=== PATIENT | female | born 1970 | race Caucasian/White ===

== ENCOUNTER 2017-02-24 13:28 | Emergency (ER) | payer MEDICARE, MEDICAID ==
[~2017-02-24] VITALS: Ht 172.7 cm; Wt 58.1 kg
[~2017-02-24 13:28] MED LIST: AMOX500C2 PO; BUDE10.2 IH; BUDE180A IH; CLOM50CA2 PO; GABA400C PO; IPRA21SP NS; LAMO200T2 PO; LUBI24CA7 PO; POLY17PO4 PO; PROZAC PO; QUET400T PO; RIZA10TA27 PO; TOPI100T11 PO; TRAZ150T75 PO; ZOLP10TA2 PO; [UNRECOGNIZED DRUG - CODE] EA NOSTRIL
--- NOTE | 2017-02-24 13:40 | NUR ---
MSE DONE BY DR TATUM AT BEDSIDE.
--- NOTE | 2017-02-24 13:50 | NUR ---
Patient discharged to home in stable conditon. Written and verbal after care instructions given. Patient verbalizes understanding of instructions.
== END 2017-02-24 13:56 | disposition home or self-care (01) ==
LOC: ER 13:30
DX: S05.11XA Contusion of eyeball and orbital tissues, right eye, initial encounter (principal); F31.9 Bipolar disorder, unspecified; X58.XXXA Exposure to other specified factors, initial encounter; Y93.89 Activity, other specified; Y99.8 Other external cause status; Y92.89 Other specified places as the place of occurrence of the external cause
CPT/HCPCS: 99281; A4663

== ENCOUNTER 2019-07-04 15:12 | Emergency (ER) | payer MEDICARE, MEDICAID ==
[~2019-07-04] VITALS: Ht 172.7 cm; Wt 55.8 kg
[~2019-07-04 15:12] MED LIST changes: +LUBI24CA5 PO; -LUBI24CA7 PO; +TOPI100T PO; -TOPI100T11 PO
[2019-07-04] MEDS ORDERED: HYDROCODONE/APAP 5-325MG TABLET ONE (15:45)
[2019-07-04] MEDS ORDERED: HYDROCODONE/APAP 5-325MG TABLET PO ONE (15:45)
--- NOTE | 2019-07-04 16:44 | NUR ---
Patient discharged to home in stable conditon. Written and verbal after care instructions given. Patient verbalizes understanding of instructions.
== END 2019-07-04 16:45 | disposition home or self-care (01) ==
LOC: ER 15:12
DX: S20.212A Contusion of left front wall of thorax, initial encounter (principal); F31.9 Bipolar disorder, unspecified; Z79.2 Long term (current) use of antibiotics; Z79.899 Other long term (current) drug therapy; Z91.09 Other allergy status, other than to drugs and biological substances; W01.0XXA Fall on same level from slipping, tripping and stumbling without subsequent striking against object, initial encounter; Y93.89 Activity, other specified; Y92.89 Other specified places as the place of occurrence of the external cause; Y99.8 Other external cause status
CPT/HCPCS: 71046; A4663

== ENCOUNTER 2022-12-02 11:43 | Emergency (ER) | payer MEDICARE, OTHER ==
[~2022-12-02] VITALS: Ht 172.7 cm; Wt 72.6 kg
[2022-12-02] MEDS ORDERED: IBUPROFEN 400 MG TABLET PO ONE (12:15)
[2022-12-02] MEDS ORDERED: IBUPROFEN 400 MG TABLET ONE (12:18)
[2022-12-02] MEDS ORDERED: MORPHINE SULFATE 4 MG/1 ML DISP.SYRIN ONE (12:28)
[2022-12-02] MEDS ORDERED: MORPHINE SULFATE 4 MG/1 ML DISP.SYRIN IM ONE (12:30)
--- NOTE | 2022-12-02 14:00 | NUR ---
Pt left before written ACI could be given. Pt was given verbal ACI by ER physician.
== END 2022-12-02 14:08 | disposition home or self-care (01) ==
LOC: ER 11:43
DX: S59.902A Unspecified injury of left elbow, initial encounter (principal); M25.422 Effusion, left elbow; W17.89XA Other fall from one level to another, initial encounter; Y92.59 Other trade areas as the place of occurrence of the external cause; Y93.89 Activity, other specified; Y99.8 Other external cause status; F31.9 Bipolar disorder, unspecified
CPT/HCPCS: 99284; 73080; 73110; 96372; J2270; A4663